=== PATIENT | female | born 1940 | race African-American/Black ===

== ENCOUNTER 2025-02-18 15:42 | Emergency (ER) | payer OTHER ==
[~2025-02-18] VITALS: Ht 165.1 cm; Wt 56.0 kg
[2025-02-18 15:46] VITALS: O2SAT 98
[2025-02-18 16:23] LABS: BASOPHILS % 0.7 % (0.0-2.0); EOSINOPHILS % 1.3 % (0.0-5.0); HEMATOCRIT. 40.8 % (36.0-48.0); HEMOGLOBIN. 13.4 g/dL (12.0-16.0); LYMPHOCYTES % 17.3 % (20.0-50.0); MONOCYTES % 4.8 % (2.0-8.0); NEUTROPHILS % 75.9 % (40.0-76.0); RED BLOOD CELL COUNT 4.69 mill/uL (4.2-5.4); RED CELL DISTRIBUTION WIDTH 14.7 % (11.6-14.6)
[2025-02-18 16:40] LABS: CREATININE 1.4 mg/dL (0.6-1.0); UREA NITROGEN BLOOD 16.0 mg/dL (9-23)
[2025-02-18 16:42] LABS: TROPONIN I HIGH SENSITIVITY 4 ng/L (3.0-34)
[2025-02-18 17:30] LABS: MEAN PLATELET VOLUME 7.4 fl (7.4-10.4); PLATELET 240 x1000/uL (130-400)
[2025-02-18 19:14] LABS: GLUCOSE URINE NEGATIVE (NEGATIVE); KETONES URINE TRACE (NEGATIVE); LEUKOCYTE ESTERASE URINE 1+ (NEGATIVE); NITRITE URINE NEGATIVE (NEGATIVE); OCCULT BLOOD URINE NEGATIVE (NEGATIVE); PH URINE 6.0 (4.5-8.0); PROTEIN URINE TRACE (NEGATIVE); SPECIFIC GRAVITY URINE 1.011 (1.005-1.030); UROBILINOGEN URINE 1.0 E.U./dL (0.2-1.0)
[2025-02-18 19:43] LABS: CLARITY URINE SL HAZY (CLEAR); COLOR URINE STRAW (YELLOW)
[2025-02-18 19:44] LABS: RBC URINE NONE SEEN /hpf (0-2); SQUAMOUS EPITHELIAL CELL URINE FEW /lpf (RARE/1+)
[2025-02-18 19:45] LABS: BACTERIA URINE TRACE
[2025-02-18 19:46] LABS: MUCUS URINE TRACE /lpf (< = 2+)
[2025-02-18] MEDS: POTASSIUM CHLORIDE 20MEQ/PACKET PO ONE (19:47)
[2025-02-18] MEDS: SODIUM CHLORIDE 0.9% 500 ML IV ONE (19:50)
[2025-02-18] MEDS ORDERED: POTA10CA93 MT (19:58)
[2025-02-18 20:55] VITALS: BP 124/77; PULSE 91; RESP 15; TEMP 36.7; O2SAT 97
== END 2025-02-18 21:10 | disposition home or self-care (01) ==
LOC: ER 15:42 → CMPBEDREQ 02-19 08:30
DX: S09.90XA Unspecified injury of head, initial encounter (principal); E87.6 Hypokalemia; E86.0 Dehydration; E78.00 Pure hypercholesterolemia, unspecified; I10 Essential (primary) hypertension; Z79.899 Other long term (current) drug therapy; W18.39XA Other fall on same level, initial encounter; Y93.89 Activity, other specified; Y92.89 Other specified places as the place of occurrence of the external cause; Y99.8 Other external cause status
CPT/HCPCS: 99285; 96360; 70450; 71045; 80048; 81003; 85025; 84484; 36415; 93005; J7040